=== PATIENT | female | born 1975 | race Caucasian/White ===

== ENCOUNTER 2020-06-03 08:00 | Day surgery (SDCO) | payer OTHER ==
[~2020-06-03 08:00] MED LIST: ALLEGRA ALLERG180 MG PO; ARNUITY ELLIP100 MCG IN; BUDESONIDE EC3 MG PO; CALCIUM + D3 E1 EACH PO; DAILY MULTIPLE1 EAC1 PO; HCTZ25 MG PO; K-DUR20 MEQ PO; LIPITOR 10MG TA10 MG PO; PENTASA250 MG PO; PRILOSEC20 MG PO; PROBIOTIC1 EAC1 PO; SPRINTEC 28 DA1 EACH PO; VITAMIN B12-FO1 EACH PO
[2020-06-03 08:27] LABS: HCG (URINE) SCREEN NEGATIVE (NEGATIVE)
[2020-06-03 09:31] LABS: HCT 39.6 % (37.0-47.0); HGB 13.3 g/dl (12.5-16.0); MCH 32.3 pg (25.0-31.0); MCHC 33.6 g/dL (32.0-36.0); MCV 96.1 fL (78.0-100.0); MPV 9.7 fL (6.0-9.5); RBC 4.12 M/uL (4.20-5.40); WBC 5.3 K/uL (4.0-10.5)
[2020-06-03 10:06] LABS: ALBUMIN 3.7 g/dL (3.4-5.0); BILIRUBIN - TOTAL 0.5 mg/dL (0.2-1.0); BUN/CREAT RATIO (CALC) 16.1 RATIO; CREATININE 0.62 mg/dL (0.51-0.95); GLOBULIN (CALCULATION) 3.4 g/dL; POTASSIUM 3.1 mmol/L (3.5-5.1); TOTAL PROTEIN 7.1 g/dL (6.4-8.2)
[2020-06-03] MEDS ORDERED: IBUPROFEN800 M1 PO (11:31)
[2020-06-03] MEDS ORDERED: ZOFRAN4 M1 PO (11:31)
[2020-06-03] MEDS ORDERED: PERCOCET 5-3251 EACH PO (11:31)
[2020-06-03] MEDS ORDERED: COLACE100 MG PO (11:31)
== END 2020-06-03 15:00 | disposition home or self-care (01) ==
LOC: FSDC 08:00
PROVIDERS: ADMIT Obstetrics & Gynecology
DX: D25.0 Submucous leiomyoma of uterus (principal); D25.2 Subserosal leiomyoma of uterus; K42.9 Umbilical hernia without obstruction or gangrene; K50.90 Crohn's disease, unspecified, without complications; D25.9 Leiomyoma of uterus, unspecified; E87.6 Hypokalemia; I10 Essential (primary) hypertension; J45.909 Unspecified asthma, uncomplicated; K21.9 Gastro-esophageal reflux disease without esophagitis; N92.1 Excessive and frequent menstruation with irregular cycle; Z30.41 Encounter for surveillance of contraceptive pills; Z88.1 Allergy status to other antibiotic agents; Z78.9 Other specified health status; Z98.890 Other specified postprocedural states; Z90.49 Acquired absence of other specified parts of digestive tract; E66.9 Obesity, unspecified; Z68.31 Body mass index [BMI] 31.0-31.9, adult; Z20.822 Contact with and (suspected) exposure to COVID-19; Z79.899 Other long term (current) drug therapy
CPT/HCPCS: 36415; 80053; 84703; 86850; 86900; 86901; G0378; J0690; J1100; J1170; J1885; J2250; J2405; J2704; J2710; J3010; J7120